=== PATIENT | female | born 1970 | race Caucasian/White ===

== ENCOUNTER 2019-08-17 20:27 | Inpatient (IN) | payer OTHER ==
[2019-08-17 20:57] VITALS: BMI 31.3
--- NOTE | 2019-08-17 21:03 | PDOC ---
History of Present Illness - General Chief Complaint: Pain Stated Complaint: GALLASTONES Time Seen by Provider: 08/17/19 21:01 - History of Present Illness Initial Comments: 08/17/19 21:54 Pt is a 48y/o female with PMH of cholelithiasis who presents with 2 weekends of upper abdominal pain. She reports her diet is worse on the weekends, and the pain is worse after meals and with deep inspiration. It is sharp and dull in nature. Pain is currently 10/10, and pt is unable to get in a comfortable position. She also has nausea, vomiting (4-5x yesterday, last time bilious; today tried to vomit but could not), chills, and diaphoresis. She denies chest pain, shortness of breath, or diarrhea. She reports being treated for UTI in the last week and still has urge to urinate. She is on an abx but unsure of name. Past History - Past Medical History Allergies/Adverse Reactions: Allergies Allergy/AdvReac Type Severity Reaction Status Date / Time No Known Allergies Allergy Verified 08/17/19 20:51 Home Medications: Ambulatory Orders NK [No Known Home Medication] 08/18/19 CVA: No COPD: No GI Disorders: Yes (Gallstones) HTN: No Hypercholesterolemia: No - Surgical History Abdominal Surgery: No - Family Medical History Family Hx Diabetes: Sister - Psycho Social/Smoking Cessation Hx Smoking History: Current some day smoker Number of Cigarettes Smoked Daily: 3 Information on smoking cessation initiated: Yes Hx Alcohol Use: No Drug/Substance Use Hx: No Review of Systems - Review of Systems Constitutional: Yes: Chills, Diaphoresis. No: Fever Respiratory: No: Shortness of Breath Cardiac (ROS): No: Chest Pain ABD/GI: Yes: Nausea, Vomiting. No: Diarrhea *Physical Exam - Vital Signs Last Vital Signs Temp Pulse Resp BP Pulse Ox 98 F 77 20 130/83 97 08/17/19 20:51 08/17/19 20:51 08/17/19 20:51 08/17/19 20:51 08/17/19 20:51 - Physical Exam General Appearance: Yes: Nourished, Appropriately Dressed, Mild Distress HEENT: positive: EOMI, PHILLY Neck: positive: Trachea midline Respiratory/Chest: positive: Lungs Clear Cardiovascular: positive: Regular Rhythm, Regular Rate. negative: Murmur Gastrointestinal/Abdominal: positive: Tender (RUQ, LUQ, epigastric) ED Treatment Course - LABORATORY CBC & Chemistry Diagram: 08/18/19 05:27 08/18/19 05:27 Medical Decision Making - Medical Decision Making 08/18/19 00:42 Pt is a 48y/o female with PMH of cholelithiasis who presents with 2 weekends of upper abdominal pain. WBC 18 given IV tylenol, zofran Reglan, Benadryl, Dilaudid NS 100mL/hr pre-op labs ordered NPO surgical consult- Dr. Leal GI consult- Dr. Parker Spoke with Dr. Matthews who accepted the pt under Dr. Bazan. Discharge - Discharge Information Problems reviewed: Yes Clinical Impression/Diagnosis: Acute cholecystitis - Admission Yes - Follow up/Referral - Patient Discharge Instructions - Post Discharge Activity
[2019-08-17] MEDS ORDERED: ONDANSETRON 4 MG/2 ML VIAL IVPUSH ONE (21:41)
[2019-08-17] MEDS ORDERED: ACETAMINOPHEN 1000 MG/100 ML VIAL (NON FORMULARY) IVPB ONE (21:50)
[2019-08-17] MEDS ORDERED: ONDANSETRON 4 MG/2 ML VIAL ONE (21:53)
[2019-08-17] MEDS ORDERED: ACETAMINOPHEN INJECTION 100 ML IVPB ONE (21:58)
[2019-08-17 21:59] LABS: BASO % 0.5 % (0-2.0); EOS % 0.2 % (0-4.5); HEMATOCRIT 40.2 % (32.4-45.2); HEMOGLOBIN 13.3 GM/dL (10.7-15.3); LYMPH % 13.1 % (8-40); MCH 30.3 pg (25.7-33.7); MCHC 33.1 g/dl (32.0-36.0); MEAN CELL VOLUME 91.8 fl (80-96); MEAN PLT VOLUME 7.7 fl (7.5-11.1); MONO % 4.1 % (3.8-10.2); NEUT % 82.1 % (42.8-82.8); PLATELET COUNT 384 K/MM3 (134-434); RBC 4.38 M/mm3 (3.60-5.2); WHITE BLOOD COUNT 18.2 K/mm3 (4.0-10.0)
--- NOTE | 2019-08-17 22:02 | PDOC ---
Documentation entered by Jaja Yepez SCRIBE, acting as scribe for Sheree Choudhury MD. Sheree Choudhury MD: This documentation has been prepared by the [place]ibe, Jaja Yepez SCRIBE, under my direction and personally reviewed by me in its entirety. I confirm that the documentation accurately reflects all work, treatment, procedures, and medical decision making performed by me. Attending Attestation - Resident Resident Name: Kelly Beebe - ED Attending Attestation I have performed the following: I have examined & evaluated the patient, The case was reviewed & discussed with the resident, I agree w/resident's findings & plan, Exceptions are as noted - HPI HPI: The patient is a 48-year-old female with a past medical history significant for gallstones who presents to the emergency department with epigastric pain. The patient presents with two weekends of epigastric pain associated with nausea and vomiting, no relief with Pepto Bismol. The patient reports she had 4-5 episodes of vomiting yesterday, denies vomiting today. Denies diarrhea or fever , but reports chills and diaphoresis. The patient recalls her last meal was last night. 08/17/19 22:01 - Physicial Exam PE: 08/17/19 22:04 Well-nourished well-developed 48-year-old female presents with epigastric pain Head was normocephalic atraumatic Oral carious dentition Neck is supple Lungs are clear to auscultation bilaterally CVS regular rate rhythm S1-S2 Abdomen epigastric pain to deep palpation but no rebound or guarding Extremities full range of motion Skin warm and dry Neuro alert and oriented x3, ambulatory - Medical Decision Making 08/17/19 22:01 Patient states that she is not been eating well on the weekends and both week and she says epigastric pain with nausea Pepto-Bismol did not help her symptoms She said she vomited 4-5 times yesterday 08/17/19 22:02 Patient denies any prior surgeries 08/17/19 22:02 differential includes cholecystitis,gastritis, PUD 08/18/19 00:20 CAT scan consistent with acute cholecystitis PCP is Dr. Jacobo Kam and dr Bazan but Dr Wiggins was covering Patient admiitted to med/surg
[2019-08-17 22:25] LABS: URINE APPEARANCE Clear; URINE BILIRUBIN Negative (NEGATIVE); URINE COLOR Yellow; URINE GLUCOSE (UA) Negative (NEGATIVE); URINE KETONE Trace (NEGATIVE); URINE LEUK ESTERASE Negative (NEGATIVE); URINE NITRITE Negative (NEGATIVE); URINE PROTEIN Trace (NEGATIVE); URINE UROBILINOGEN 0.2 mg/dL (0.2-1.0)
[2019-08-17 22:47] LABS: EPI CELLS 6.3 /HPF (0-5/HPF); URINE BACTERIA 4.1 /hpf (NEGATIVE); URINE RBC 5.9 /hpf (0-4); URINE WBC 3.2 /hpf (0-5)
[2019-08-17 23:04] LABS: ALBUMIN 3.8 g/dl (3.4-5.0); BILIRUBIN,TOTAL 0.2 mg/dL (0.2-1); BLOOD UREA NITROGEN 6.5 mg/dL (7-18); CALCIUM 9.9 mg/dL (8.5-10.1); CREATININE 0.7 mg/dL (0.55-1.3); POTASSIUM 3.7 mmol/L (3.5-5.1); TOT PROT 8.4 g/dl (6.4-8.2)
[2019-08-18] MEDS ORDERED: METOCLOPRAMIDE HCL INJECTION 10 MG/2 ML VIAL IVPUSH ONE (00:03)
[2019-08-18] MEDS ORDERED: HYDROmorphone HCL CARPU-JECT 2 MG/1 ML DISP.SYRIN IVPUSH ONE (00:08)
[2019-08-18] MEDS ORDERED: PIPERACILLIN/TAZOB 3.375 GM 3.375 GM in DEXTROSE 5%-WATER - 50 ML IVPB ONE (00:09)
[2019-08-18] MEDS ORDERED: SODIUM CHLORIDE 1,000 ML IV SCH (00:15)
[2019-08-18] MEDS ORDERED: METOCLOPRAMIDE HCL INJECTION 10 MG/2 ML VIAL ONE (00:25)
[2019-08-18] MEDS ORDERED: PIPERACILLIN/TAZOB 3.375 GM 3.375 GM/50 ML BAG IVPB ONE ×2 (00:25→08:23)
[2019-08-18] MEDS ORDERED: HYDROmorphone HCl 2 MG/ML VIAL ONE (00:25)
--- NOTE | 2019-08-18 01:43 | HP ---
Admitting History and Physical - Admission Chief Complaint: Acute nausea, vomiting, and RUQ and epigastric abdominal pain History of Present Illness: This 48 yr old w/f with 15 yr history of gallstones admitted via ER with acute nausea, vomiting, and RUQ and epigastric abdominal pain and acute neutrophilic leukocytosis. 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: Alzheimer's, CVA, Dementia, Migraine, Multiple Sclerosis, Peripheral Neuropathy, Parkinson's, Seizure, Syncope, TIA, Vertigo, Other Cardiovascular: No: AFIB, Aneurysm, Aortic Insufficiency, Aortic Stenosis, CAD, CHF, Deep Vein Thrombosis, HTN, Hyperlipdemia, DE, Mitral Insufficiency, Mitral Stenosis, Murmur, Pulmonary Hypertension, Other Pulmonary: No: Asthma, Bronchitis, Cancer, COPD, O2 Dependent, Pneumonia, Previously Intubated, Pulmonary Embolus, Pulmonary Fibrosis, Sleep Apnea, Other Hepatobiliary: Yes: Cholelithiasis Renal/: No: Renal Failure, Renal Inusuff, BPH, Cancer, Hematuria, Hemodialysis , Neurogenic Bladder, Renal Calculi, UTI, Other Reproductive: No: Ectopic , Endometriosis, Fibroids, PID, Polycystic Ovary Syndrome, Postmenopausal, Other Heme/Onc: No: Anemia, B12 Deficiency, Bleeding Disorder, Cancer, Current Chemotherapy, Current Radiation Therapy, Hemochromatosis, Hypercoaguable State, Myeloproliferative Synd, Sickle Cell Disease, Sickle Cell Trait, Thrombocytopenia, Other Infectious Disease: No: AIDS, C-Diff, Herpes Zoster, HIV, MRSA, STD's, Tuberculosis, VREF, Other Psych: No: Addictions, Anxiety, Bipolar, Depression, Panic, Psychosis, Schizophrenia, Other Musculoskeletal: No: Bursitis, Chronic low back pain, Hemiparesis, Hemiplegia, Osteoarthritis, Paraplegia, Other Rheumatology: No: Fibromyalgia, Gout, Lupus, Rheumatoid Arthritis, Sarcoidosis, Vasculitis, Other ENT: No: Allergic Rhinitis, Sinusitis, Other Endocrine: No: Greene's Disease, Saint Stephen's Disease, Diabetes Insipidus, Diabetes Mellitus, Hyperparathyroidism, Hyperthyroidism, Hypothyroidism, Osteopenia, SIADH, Other Dermatology: No: Basal Cell, Cellulitis, Eczema, Melanoma, Psoriasis, Squamous Cell, Other - Past Surgical History Past Surgical History: No: None, AAA Repair, AICD, Amputation, Appendectomy, Arthrosocopy, AV Fistula/Graft, Bariatric Surgery, Breast Biopsy, Bypass, CABG, Carotid Endarterectomy, Cataract Removal, Cholecystectomy, Colectomy, Colonoscopy, Colostomy, Craniotomy, , Cystectomy, Hernia Repair, Hysterectomy, Ileal Conduit, Ileosotomy, Joint Replacement, Kidney Transplant, Laminectomy, Liver Transplant, Mastectomy, Nephrectomy, Oopherectomy, Orchiectomy, Permanent Pacemaker, Prostatectomy, Splenectomy, Stent, Thoracotomy , TURP, Tonsillectomy, Tubal Ligation, Upper Endoscopy, Valve Replacement, Vasectomy, Vein Stripping/Ligation - Smoking History Smoking history: Current some day smoker Aproximately how many cigarettes per day: 3 - Alcohol/Substance Use Hx Alcohol Use: No Home Medications - Allergies Allergies/Adverse Reactions: Allergies Allergy/AdvReac Type Severity Reaction Status Date / Time No Known Allergies Allergy Verified 08/17/19 20:51 Family Medical History Family Hx Cancer: Father (esophageal cancer) Family Hx Nuerologic Problems: Brother (cerebral aneurysm) Review of Systems - Review of Systems Constitutional: reports: Loss of Appetite Eyes: reports: No Symptoms HENT: reports: No Symptoms Neck: reports: No Symptoms Cardiovascular: reports: No Symptoms Respiratory: reports: No Symptoms Gastrointestinal: reports: Abdominal Pain, Nausea, Vomiting Genitourinary: reports: No Symptoms Breasts: reports: No Symptoms Reported Musculoskeletal: reports: No Symptoms Integumentary: reports: No Symptoms Neurological: reports: No Symptoms Endocrine: reports: No Symptoms Hematology/Lymphatic: reports: No Symptoms Psychiatric: reports: No Symptoms Physical Examination Vital Signs: Vital Signs Temperature 98 F 08/17/19 20:51 Pulse Rate 77 08/17/19 20:51 Respiratory Rate 20 08/17/19 20:51 Blood Pressure 130/83 08/17/19 20:51 O2 Sat by Pulse Oximetry (%) 97 08/17/19 20:51 Constitutional: Yes: Well Nourished, Calm, Mild Distress Eyes: Yes: Conjunctiva Clear, EOM Intact HENT: Yes: Atraumatic, Normocephalic Neck: Yes: Supple, Trachea Midline Cardiovascular: Yes: Regular Rate and Rhythm Respiratory: Yes: Regular, CTA Bilaterally Gastrointestinal: Yes: Normal Bowel Sounds, Soft, Tenderness (RUQ), Tenderness, Epigastrium ...Rectal Exam: Yes: Deferred Renal/: Yes: WNL Breast(s): Yes: WNL Musculoskeletal: Yes: WNL Extremities: Yes: WNL Edema: No Peripheral Pulses WNL: Yes Integumentary: Yes: WNL Neurological: Yes: WNL ...Motor Strength: WNL Psychiatric: Yes: WNL Labs: CBC, BMP 08/17/19 21:52 08/17/19 21:52 Imaging - Results Other: Report Reviewed (Lab data reviewed) Problem List - Problems (1) Cholelithiasis Code(s): K80.20 - CALCULUS OF GALLBLADDER W/O CHOLECYSTITIS W/O OBSTRUCTION (2) Acute cholecystitis Code(s): K81.0 - ACUTE CHOLECYSTITIS (3) Obesity Code(s): E66.9 - OBESITY, UNSPECIFIED (4) Nausea and vomiting Code(s): R11.2 - NAUSEA WITH VOMITING, UNSPECIFIED (5) RUQ abdominal pain Code(s): R10.11 - RIGHT UPPER QUADRANT PAIN (6) Epigastric abdominal pain Code(s): R10.13 - EPIGASTRIC PAIN Assessment/Plan Assessment/plan: acute nausea, vomiting, RUQ and epigastric abdominal pain, acute cholecystitis, acute neutrophilic leukocytosis; IV fluids, IV antibiotics , DVT prophylaxis, incentive spirometer.
[2019-08-18] MEDS ORDERED: ACETAMINOPHEN 1000 MG/100 ML VIAL (NON FORMULARY) IVPB PRN ×2 (02:00→19:35)
[2019-08-18] MEDS: LACTATED RINGERS SOLUTION 1,000 ML/1,000 ML INFUS.BAG IV SCH ×2 (03:26→22:32)
[2019-08-18] MEDS ORDERED: ONDANSETRON 4 MG/2 ML VIAL IVPUSH ONE (04:56)
[2019-08-18] MEDS ORDERED: ONDANSETRON 4 MG/2 ML VIAL ONE (05:59)
[2019-08-18 06:23] LABS: BASO % 0.6 % (0-2.0); EOS % 0.2 % (0-4.5); HEMOGLOBIN 12.3 GM/dL (10.7-15.3); LYMPH % 13.9 % (8-40); MCH 30.3 pg (25.7-33.7); MCHC 33.1 g/dl (32.0-36.0); MEAN CELL VOLUME 91.5 fl (80-96); MEAN PLT VOLUME 7.8 fl (7.5-11.1); MONO % 6.2 % (3.8-10.2); NEUT % 79.1 % (42.8-82.8); PLATELET COUNT 347 K/MM3 (134-434); RBC 4.05 M/mm3 (3.60-5.2); RDW 14.4 % (11.6-15.6); WHITE BLOOD COUNT 16.4 K/mm3 (4.0-10.0)
[2019-08-18] MEDS ORDERED: ACETAMINOPHEN INJECTION 100 ML IVPB ONE (06:23)
[2019-08-18 06:38] LABS: INR 1.11 (0.83-1.09); PROTHROMBIN TIME (PATIENT) 13.1 SEC (9.7-13.0)
[2019-08-18 06:41] LABS: ACTIVATED PTT 33.8 SECONDS (25.2-36.5)
[2019-08-18 06:47] LABS: ALBUMIN 3.5 g/dl (3.4-5.0); BILIRUBIN,TOTAL 0.4 mg/dL (0.2-1); BLOOD UREA NITROGEN 6.7 mg/dL (7-18); CALCIUM 8.6 mg/dL (8.5-10.1); CREATININE 0.6 mg/dL (0.55-1.3); MAGNESIUM 2.1 mg/dL (1.8-2.4); POTASSIUM 3.6 mmol/L (3.5-5.1); TOT PROT 7.7 g/dl (6.4-8.2)
[2019-08-18] MEDS: PIPERACILLIN/TAZOB 3.375 GM 3.375 GM in DEXTROSE 5%-WATER - 50 ML IVPB SCH ×3 (08:33→21:09)
--- NOTE | 2019-08-18 12:00 | CON.GI ---
Consult Consult Specialty:: Gastroenterology Referred by:: Tirso Beebe MD Reason for Consultation:: Abdominal pain - History of Present Illness Chief Complaint: Abdominal pain and vomiting for past two weekends History of Present Illness: 48F presents with colicky epigastric pain that radiates to the scapula and has led to vomiting. It occurred this and last weekend. Sonogram reveals gallstones and normal bile ducts. Her LFTs are unremarkable. She tells me that she had an ulcer diagnosed without endoscopy or imaging in the past but that pain was different. Bot grandmothers had stomach cancers and her father of esophageal cancer. She has never had an EGD. Her PMD is Dr Graves. 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 [facility] [employer] Home Medications - Allergies Allergies/Adverse Reactions: Allergies Allergy/AdvReac Type Severity Reaction Status Date / Time No Known Allergies Allergy Verified 08/17/19 20:51 - Home Medications Home Medications: Ambulatory Orders NK [No Known Home Medication] 08/18/19 Family Medical History Family Hx Cancer: Grandmother (maternal) (stomach cancer), Grandmother (paternal ) (stomach cancer), Father ( age 56 esophageal cancer) Review of Systems - Review of Systems Constitutional: reports: No Symptoms Eyes: reports: No Symptoms HENT: reports: No Symptoms Neck: reports: No Symptoms Cardiovascular: reports: No Symptoms Respiratory: reports: No Symptoms Gastrointestinal: reports: Abdominal Pain, Vomiting Genitourinary: reports: No Symptoms Musculoskeletal: reports: Back Pain Psychiatric: reports: Depression Physical Exam-GI Vital Signs: Vital Signs Temperature 98 F 08/18/19 11:48 Pulse Rate 69 08/18/19 11:48 Respiratory Rate 18 08/18/19 11:48 Blood Pressure 132/75 08/18/19 11:48 O2 Sat by Pulse Oximetry (%) 98 08/18/19 11:48 CBC,CMP WBC 16.4 K/mm3 (4.0-10.0) H 08/18/19 05:27 RBC 4.05 M/mm3 (3.60-5.2) 08/18/19 05:27 Hgb 12.3 GM/dL (10.7-15.3) 08/18/19 05:27 Hct 37.0 % (32.4-45.2) 08/18/19 05:27 MCV 91.5 fl (80-96) 08/18/19 05:27 MCH 30.3 pg (25.7-33.7) 08/18/19 05:27 MCHC 33.1 g/dl (32.0-36.0) 08/18/19 05:27 RDW 14.4 % (11.6-15.6) 08/18/19 05:27 Plt Count 347 K/MM3 (134-434) 08/18/19 05:27 MPV 7.8 fl (7.5-11.1) 08/18/19 05:27 Absolute Neuts (auto) 13.0 K/mm3 (1.5-8.0) H 08/18/19 05:27 Neutrophils % 79.1 % (42.8-82.8) 08/18/19 05:27 Lymphocytes % 13.9 % (8-40) 08/18/19 05:27 Monocytes % 6.2 % (3.8-10.2) 08/18/19 05:27 Eosinophils % 0.2 % (0-4.5) 08/18/19 05:27 Basophils % 0.6 % (0-2.0) 08/18/19 05:27 Nucleated RBC % 0 % (0-0) 08/18/19 05:27 Sodium 136 mmol/L (136-145) 08/18/19 05:27 Potassium 3.6 mmol/L (3.5-5.1) 08/18/19 05:27 Chloride 104 mmol/L (98-107) 08/18/19 05:27 Carbon Dioxide 24 mmol/L (21-32) 08/18/19 05:27 Anion Gap 8 MMOL/L (8-16) 08/18/19 05:27 BUN 6.7 mg/dL (7-18) L 08/18/19 05:27 Creatinine 0.6 mg/dL (0.55-1.3) 08/18/19 05:27 Est GFR (CKD-EPI)AfAm 125.80 08/18/19 05:27 Est GFR (CKD-EPI)NonAf 108.54 08/18/19 05:27 Random Glucose 120 mg/dL (74-106) H 08/18/19 05:27 Calcium 8.6 mg/dL (8.5-10.1) 08/18/19 05:27 Magnesium 2.1 mg/dL (1.8-2.4) 08/18/19 05:27 Total Bilirubin 0.4 mg/dL (0.2-1) 08/18/19 05:27 AST 13 U/L (15-37) L 08/18/19 05:27 ALT 18 U/L (13-61) 08/18/19 05:27 Alkaline Phosphatase 106 U/L (45-117) 08/18/19 05:27 Total Protein 7.7 g/dl (6.4-8.2) 08/18/19 05:27 Albumin 3.5 g/dl (3.4-5.0) 08/18/19 05:27 Current Medications Generic Name Dose Route Start Last Admin Trade Name Freq PRN Reason Stop Dose Admin Acetaminophen 1,000 mg 08/18/19 02:00 08/18/19 06:30 Ofirmev Injection - IVPB 1,000 mg Q6H PRN Administration PAIN Sodium Chloride 1,000 mls @ 100 mls/hr 08/18/19 00:15 08/18/19 00:36 Normal Saline - IV 100 mls/hr ASDIR TINA Administration Piperacillin Sod/Tazobactam 50 mls @ 100 mls/hr 08/18/19 08:00 08/18/19 08:33 Sod 3.375 gm/ Dextrose IVPB 08/18/19 21:29 100 mls/hr Q6H-IV TINA Administration Protocol Lactated Ringer's 1,000 ml in 1,000 mls @ 125 mls/hr 08/18/19 02:15 08/18/19 03:26 Lactated Ringers Solution IV 125 mls/hr ASDIR TINA Administration Piperacillin Sod/Tazobactam 50 mls @ 100 mls/hr 08/19/19 03:00 Sod 3.375 gm/ Dextrose IVPB Q6H-IV [facility] Protocol Constitutional: Yes: Anxious Eyes: Yes: Conjunctiva Clear HENT: Yes: Atraumatic Neck: Yes: Trachea Midline Cardiovascular: Yes: Regular Rate and Rhythm Respiratory: Yes: CTA Bilaterally Gastrointestinal Inspection: Yes: WNL ...Auscultate: Yes: Hypoactive Bowel Sounds ...Palpate: Yes: Soft, Tenderness (mild epigastric tenderness) ...Rectal Exam: Yes: Deferred (declined) Labs: CBC, BMP 08/18/19 05:27 08/18/19 05:27 INR, PTT INR 1.11 (0.83-1.09) H 08/18/19 05:27 Imaging - Results Ultrasound: Report Reviewed ( Final Report US ABDOMEN US -LIMITED Show Printer-Friendly Version Patient Name: Aurelia Arreola : 1970 ID: [id number] Study Date: 17-Aug-2019 22:16 [facility] Name: AURELIA ARREOLA DEPARTMENT OF RADIOLOGY Phys: Kelly Beebe RESIDENT : Age: 48 Sex: F [facility] Acct: [id number] Loc: [address] Exam Date: 08/17/19 Status: [place] [address] Unit Number: [id number] EXAM#: TYPE/EXAM: RESULT: [id number] US/ABDOMEN US -LIMITED HISTORY PROVIDED: Rule out cholelithiasis, cholecystitis. Real time examination of the abdomen demonstrates the following: The gallbladder is somewhat thick- walled and does contain multiple calculi. There is no evidence of intra or extrahepatic biliary duct dilatation. The steel engraver describes a negative Alcaraz's sign. If acute cholecystitis is clinically suspected, a follow-up HIDA scan may be warranted. The liver is normal in size and texture with no intrahepatic masses seen. Hepatopedal flow is documented within the main portal vein. The pancreas is normal in size and texture with no pancreatic masses identified. There is no evidence of hydronephrosis or acute abnormalities of the right kidney. There is no evidence of AAA. The IVC is patent. IMPRESSION: Thick walled gallbladder with multiple calculi. Clinical correlation and follow-up recommended. Please see above discussion. Reported By: Perry Fallon MD 08/18/19817 Technologist: Susan Gamble Transcribed Date/Time: 08/18/19817 Data Warehouse Consultant: Perry Fallon Printed Date/Time: By: Signed by: Perry Fallon Signed on: 18-Aug-2019 08:20) Problem List - Problems (1) Family history of esophageal cancer Code(s): Z80.0 - FAMILY HISTORY OF MALIGNANT NEOPLASM OF DIGESTIVE ORGANS (2) Acute cholecystitis Code(s): K81.0 - ACUTE CHOLECYSTITIS (3) Depression Code(s): F32.9 - MAJOR DEPRESSIVE DISORDER, SINGLE EPISODE, UNSPECIFIED (4) Cholelithiasis Code(s): K80.20 - CALCULUS OF GALLBLADDER W/O CHOLECYSTITIS W/O OBSTRUCTION (5) Epigastric abdominal pain Code(s): R10.13 - EPIGASTRIC PAIN (6) Nausea and vomiting Code(s): R11.2 - NAUSEA WITH VOMITING, UNSPECIFIED Assessment/Plan Impression: - The clinical picture is most consistent with cholecystitis. Her imaging and LFTs indicate that she does not need an ERCP preoperatively. Given her leukocytosis and pain would proceed with cholecystectomy Plan: -- Dr Leal has been called for surgical consultation. I endorse proceeding with cholecystectomy -- I advised her to followup after discharge to consider EGD given her FH to exclude any premalignant pathology ie. Perry's metaplasia and H pylori gastritis.
--- NOTE | 2019-08-18 13:52 | EKG ---
Test Reason : Blood Pressure : / mmHG Vent. Rate : 073 BPM Atrial Rate : 073 BPM P-R Int : 148 ms QRS Dur : 086 ms QT Int : 424 ms P-R-T Axes : 047 031 032 degrees QTc Int : 467 ms NORMAL SINUS RHYTHM NORMAL ECG NO PREVIOUS ECGS AVAILABLE Confirmed by Alex Garcia ([id number]) on 08/18/2019 1:51:41 PM Referred By: Confirmed By:Alex Garcia
[2019-08-18] MEDS ORDERED: HYDROmorphone HCl 2 MG/ML VIAL IVPB PRN ×3 (14:55→19:37)
[2019-08-18] MEDS ORDERED: ONDANSETRON 4 MG/2 ML VIAL IVPUSH PRN ×2 (14:57→19:38)
[2019-08-18] MEDS ORDERED: DEXTROSE 5%-WATER - 50 ML IVPB ONE ×2 (15:07→20:55)
[2019-08-18] MEDS ORDERED: PIPERACILLIN/TAZOBACTAM 3.375 GM VIAL IVPB ONE ×2 (15:07→20:55)
[2019-08-18] MEDS ORDERED: HYDROmorphone HCl 2 MG/ML VIAL IVPB ONE (17:15)
[2019-08-18] MEDS: HEPARIN NA (PORCINE) 5,000 UNITS/ML 1ML VIAL SQ SCH ×2 (17:47→22:32)
--- NOTE | 2019-08-18 21:03 | CONSULT ---
Consult Consult Specialty:: General Surgery Referred by:: Dr. Beebe Reason for Consultation:: cholecystitis - History of Present Illness Chief Complaint: epigastric pain, N/V, cold sweats History of Present Illness: 48yo F with known h/o cholelithiasis from 15 yrs ago, has occasional attacks of self-limited colic, presented with more severe pain the last 2 weekends. She had ground beef 2 wkends ago and had a longer, more significant attack than usual, which was better by Sunday. Then Sunday, she had stuffed peppers with ground beef, and had severe epigastric pain with N/V and diarrhea (both not previously associated), as well as some cold sweats. No recent illness otherwise , though the pain also felt a bit like heartburn as well. She thought it would get better on its own, but pain persisted into Sunday, and by late afternoon, she came to ER. Never been scoped, usually watches her diet and knows fatty food triggers. Smokes some days, not for last 4 days. Had ibuprofen on Sunday , but it didn't really help the pain. In ER, she had wbc 18, normal LFTs except alk phos slightly over normal, and US showed gallstones in thickened gallbladder, consistent with acute cholecystitis. She was admitted to medicine, given pain meds and IV fluids, and started on antibiotics. Surgery was asked to asesss. GI has already seen patient. WBC is down to 16 today. LFTs normal. Lipase not checked. She is seen and examined in bed; c/o epigastric pain and difficulty taking deep breath because of it. She did not eat much since Sunday, because she was afraid of the pain. She has been NPO in the hospital. She c/o dry mouth. She is ready to get her gallbladder out. - History Source History Provided By: Patient Limitations to Obtaining History: No Limitations - Past Medical History Gastrointestinal: Yes: Peptic Ulcer Disease Hepatobiliary: Yes: Cholelithiasis ...LMP: 05/23/19 ...: No Psych: Yes: Depression (on/off meds - not for last 6 months, feeling well) - Past Surgical History Past Surgical History: Yes: None - Alcohol/Substance Use Hx Alcohol Use: Yes (rarely) History of Substance Use: reports: None - Smoking History Smoking history: Current some day smoker Have you smoked in the past 12 months: Yes Aproximately how many cigarettes per day: 3 (last 4 days ago) - Social History Usual Living Arrangement: With Child ADL: Independent 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 denies: Fever Eyes: reports: Other (uses reading glasses). denies: Blurred Vision, Recent Change in Vision HENT: denies: Difficult Swallowing, Throat Pain Neck: denies: Swollen Glands, Tenderness Cardiovascular: denies: Chest Pain, Palpitations Respiratory: denies: Cough, SOB Gastrointestinal: reports: Abdominal Pain (with hpi), Diarrhea (Sat only), Indigestion, Nausea (Sat with hpi), Vomiting (Sat with hpi). denies: Constipation Genitourinary: denies: Burning, Dysuria Musculoskeletal: reports: Back Pain (in hospital, thinks its positional). denies: Joint Pain, Muscle Pain Integumentary: denies: Change in Color, Rash Neurological: denies: Dizziness, Headache, Unsteady Gait Psychiatric: reports: Depression (on/off - not on meds for last 6 months). denies: Anxiety Physical Exam Vital Signs: Vital Signs Temperature 98.5 F 08/18/19 13:36 Pulse Rate 75 08/18/19 13:36 Respiratory Rate 20 08/18/19 13:36 Blood Pressure 135/75 08/18/19 13:36 O2 Sat by Pulse Oximetry (%) 92 L 08/18/19 14:03 Constitutional: Yes: Well Nourished, No Distress, Calm Eyes: Yes: Conjunctiva Clear, EOM Intact. No: Sclera Icterus HENT: Yes: Atraumatic, Normocephalic Neck: Yes: Supple, Trachea Midline Cardiovascular: Yes: Regular Rate and Rhythm Respiratory: Yes: Regular, CTA Bilaterally Gastrointestinal: Yes: Normal Bowel Sounds (normal to less), Soft, Abdomen, Obese, Tenderness (RUQ with Alcaraz's, less in RLQ, LLQ referred toward right), Tenderness, Epigastrium. No: Tenderness, Rebound ...Rectal Exam: Yes: Deferred Renal/: No: CVA Tenderness - Left, CVA Tenderness - Right Musculoskeletal: No: Back Pain (no direct tenderness), Joint Stiffness, Joint Swelling Extremities: No: Cool, Cyanosis Edema: No Peripheral Pulses WNL: Yes Integumentary: No: Jaundice, Rash Neurological: Yes: Alert, Oriented Psychiatric: Yes: Alert, Oriented Labs: CBC, BMP 08/18/19 05:27 08/18/19 05:27 CMP Sodium 136 mmol/L (136-145) 08/18/19 05:27 Potassium 3.6 mmol/L (3.5-5.1) 08/18/19 05:27 Chloride 104 mmol/L (98-107) 08/18/19 05:27 Carbon Dioxide 24 mmol/L (21-32) 08/18/19 05:27 Anion Gap 8 MMOL/L (8-16) 08/18/19 05:27 BUN 6.7 mg/dL (7-18) L 08/18/19 05:27 Creatinine 0.6 mg/dL (0.55-1.3) 08/18/19 05:27 Est GFR (CKD-EPI)AfAm 125.80 08/18/19 05:27 Est GFR (CKD-EPI)NonAf 108.54 08/18/19 05:27 Random Glucose 120 mg/dL (74-106) H 08/18/19 05:27 Calcium 8.6 mg/dL (8.5-10.1) 08/18/19 05:27 Magnesium 2.1 mg/dL (1.8-2.4) 08/18/19 05:27 Total Bilirubin 0.4 mg/dL (0.2-1) 08/18/19 05:27 AST 13 U/L (15-37) L 08/18/19 05:27 ALT 18 U/L (13-61) 08/18/19 05:27 Alkaline Phosphatase 106 U/L (45-117) 08/18/19 05:27 Total Protein 7.7 g/dl (6.4-8.2) 08/18/19 05:27 Albumin 3.5 g/dl (3.4-5.0) 08/18/19 05:27 wbc down from 18 no lipase checked INR, PTT INR 1.11 (0.83-1.09) H 08/18/19 05:27 Urine Test Results Urine Color Yellow 08/17/19 22:13 Urine Appearance Clear 08/17/19 22:13 Urine pH 6.0 (5.0-8.0) 08/17/19 22:13 Ur Specific [place] 1.020 (1.010-1.035) 08/17/19 22:13 Urine Protein Trace (NEGATIVE) 08/17/19 22:13 Urine Glucose (UA) Negative (NEGATIVE) 08/17/19 22:13 Urine Ketones Trace (NEGATIVE) 08/17/19 22:13 Urine Blood Trace-intact (NEGATIVE) 08/17/19 22:13 Urine Nitrite Negative (NEGATIVE) 08/17/19 22:13 Urine Bilirubin Negative (NEGATIVE) 08/17/19 22:13 Ur Leukocyte Esterase Negative (NEGATIVE) 08/17/19 22:13 preg negative Imaging - Results Ultrasound: Report Reviewed, Image Reviewed (multiple gallstones in distended gallbladder including moderate sized one at neck, thickened area of wall against liver bed, no pericholecystic fluid, cbd 4.1mm) Problem List - Problems (1) Calculus of gallbladder with acute cholecystitis without obstruction Assessment/Plan: admitted to medicine agree with NPO until postop / IVF pain meds prn - encourage nonnarcotics first line DVT prophylaxis (do NOT hold for OR) continue IV antibiotics - consult ID to continue (ordered) trend labs check lipase ok for prn benadryl for sleep Discussed with patient risks, benefits and alternatives of laparoscopic possible open cholecystectomy, including but not limited to bleeding, infection , injury to adjacent structures, bile leak or ductal injury, intraabdominal abscess, incisional hernia, need for further procedures; alternatives include antibiotics with delayed or no surgery - risks of this include recurrence of cholecystitis, cholangitis, sepsis, pancreatitis and sequelae. Patient desires to proceed with operation - will take to OR in am for above. Informed consent signed for same. Plan OR for 11:00 tomorrow, pending am labs without evidence of pancreatitis. Code(s): K80.00 - CALCULUS OF GALLBLADDER W ACUTE CHOLECYST W/O OBSTRUCTION (2) Epigastric abdominal pain Assessment/Plan: still quite tender Code(s): R10.13 - EPIGASTRIC PAIN (3) Nausea and vomiting Assessment/Plan: resolved Code(s): R11.2 - NAUSEA WITH VOMITING, UNSPECIFIED Qualifiers: Vomiting type: unspecified Vomiting Intractability: non-intractable Qualified Code(s): R11.2 - Nausea with vomiting, unspecified (4) Obesity Code(s): E66.9 - OBESITY, UNSPECIFIED Qualifiers: Obesity type: due to excess calories Obesity classification: adult class 1 (BMI 30 - 34.9) Serious obesity comorbidity presence: without serious comorbidity Body mass index: BMI 31.0-31.9 Qualified Code(s): E66.09 - Other obesity due to excess calories; Z68.31 - Body mass index (BMI) 31.0-31.9, adult (5) Tobacco dependence due to cigarettes Assessment/Plan: discussed negative effect on wound healing and increased risk of wound infection /complications counseled regarding cessation pt receptive to quitting Code(s): F17.210 - NICOTINE DEPENDENCE, CIGARETTES, UNCOMPLICATED
[2019-08-18] MEDS ORDERED: HEPARIN NA (PORCINE) 5,000 UNITS/ML 1ML VIAL SQ SCH (22:00)
[2019-08-19] MEDS ORDERED: PIPERACILLIN/TAZOBACTAM 3.375 GM VIAL IVPB ONE ×4 (01:34→21:51)
[2019-08-19] MEDS ORDERED: DEXTROSE 5%-WATER - 50 ML IVPB ONE ×4 (01:34→21:51)
[2019-08-19] MEDS: LACTATED RINGERS SOLUTION 1,000 ML/1,000 ML INFUS.BAG IV SCH ×2 (02:45→08:04)
[2019-08-19] MEDS: PIPERACILLIN/TAZOB 3.375 GM 3.375 GM in DEXTROSE 5%-WATER - 50 ML IVPB SCH ×4 (02:46→21:58)
[2019-08-19] MEDS ORDERED: PIPERACILLIN/TAZOB 3.375 GM 3.375 GM in DEXTROSE 5%-WATER - 50 ML IVPB SCH (03:00)
[2019-08-19] MEDS: HEPARIN NA (PORCINE) 5,000 UNITS/ML 1ML VIAL SQ SCH ×2 (09:01→21:59)
[2019-08-19 09:13] LABS: BASO % 0.6 % (0-2.0); EOS % 0.3 % (0-4.5); HEMATOCRIT 35.7 % (32.4-45.2); HEMOGLOBIN 11.8 GM/dL (10.7-15.3); LYMPH % 13.8 % (8-40); MCH 30.7 pg (25.7-33.7); MCHC 33.2 g/dl (32.0-36.0); MEAN CELL VOLUME 92.4 fl (80-96); MEAN PLT VOLUME 7.8 fl (7.5-11.1); MONO % 7.8 % (3.8-10.2); NEUT % 77.5 % (42.8-82.8); PLATELET COUNT 299 K/MM3 (134-434); RBC 3.86 M/mm3 (3.60-5.2); RDW 14.2 % (11.6-15.6)
[2019-08-19 09:33] LABS: ALBUMIN 3.3 g/dl (3.4-5.0); BILIRUBIN,TOTAL 0.7 mg/dL (0.2-1); BLOOD UREA NITROGEN 6.6 mg/dL (7-18); CALCIUM 8.8 mg/dL (8.5-10.1); CREATININE 0.6 mg/dL (0.55-1.3); POTASSIUM 3.6 mmol/L (3.5-5.1); TOT PROT 7.5 g/dl (6.4-8.2)
[2019-08-19] MEDS ORDERED: PROPOFOL 20 ML ONE ×2 (09:58)
[2019-08-19] MEDS ORDERED: SUCCINYLCHOLINE CHLORIDE 200 MG/10 ML SYRINGE ONE (09:58)
[2019-08-19] MEDS ORDERED: MIDAZOLAM HCL 2 MG/2 ML SINGLE DOSE VIAL ONE ×2 (09:59)
[2019-08-19] MEDS ORDERED: fentaNYL CITRATE 250 MCG/5 ML VIAL ONE (09:59)
[2019-08-19] MEDS ORDERED: ROCURONIUM BROMIDE 50 MG/5 ML SYRINGE ONE ×2 (09:59)
[2019-08-19] MEDS ORDERED: BUPIVACAINE HCL/PF 0.5% (5 MG/ML) 30 ML VIAL IJ ONE ×2 (10:53→12:13)
--- NOTE | 2019-08-19 11:58 | PN ---
Progress Note, Physician Chief Complaint: Patient seen and examined at the bedside, mild RUQ abdominal pain. History of Present Illness: This 48 yr old w/f with hx of cholelithiasis admitted via ER with acute nausea, and vomiting, acute RUQ and epigastric abdominal pain, and acute neutrophilic leukocytosis. - Current Medication List Current Medications: Active Medications Acetaminophen (Ofirmev Injection -) 1,000 mg IVPB Q6H PRN PRN Reason: Pain Level 1 - 10 FIRST LINE Last Admin: 08/18/19 23:46 Dose: 1,000 mg Diphenhydramine HCl (Benadryl Injection -) 25 mg IVPUSH HS PRN PRN Reason: INSOMNIA Last Admin: 08/18/19 22:32 Dose: 25 mg Heparin Sodium (Porcine) (Heparin -) 5,000 unit SQ BID TINA Last Admin: 08/19/19 09:01 Dose: Not Given Hydromorphone HCl (Dilaudid Vial -) 0.5 mg IVPB Q6H PRN PRN Reason: PAIN LEVEL 7 - 10 Lactated Ringer's (Lactated Ringers Solution) 1,000 ml in 1,000 mls @ 125 mls/ hr IV ASDIR TINA Last Admin: 08/19/19 08:04 Dose: 125 mls/hr Piperacillin Sod/Tazobactam (Sod 3.375 gm/ Dextrose) 50 mls @ 100 mls/hr IVPB Q6H-IV TINA Last Admin: 08/19/19 08:04 Dose: 100 mls/hr Ondansetron HCl (Zofran Injection) 4 mg IVPUSH Q4H PRN PRN Reason: NAUSEA AND/OR VOMITING - Objective Vital Signs: Vital Signs Temperature 99.0 F 08/19/19 09:11 Pulse Rate 74 08/19/19 09:11 Respiratory Rate 18 08/19/19 09:11 Blood Pressure 118/71 08/19/19 09:11 O2 Sat by Pulse Oximetry (%) 93 L 08/19/19 09:00 Constitutional: Yes: Well Nourished, Calm, Mild Distress Eyes: Yes: Conjunctiva Clear, EOM Intact HENT: Yes: Atraumatic, Normocephalic Neck: Yes: Supple, Trachea Midline Cardiovascular: Yes: Regular Rate and Rhythm Respiratory: Yes: Regular, CTA Bilaterally Gastrointestinal: Yes: Normal Bowel Sounds, Hypoactive Bowel Sounds ...Rectal Exam: Yes: Deferred Genitourinary: Yes: WNL Breast(s): Yes: WNL Musculoskeletal: Yes: WNL Extremities: Yes: WNL Edema: No Peripheral Pulses WNL: Yes Integumentary: Yes: WNL Neurological: Yes: Alert, Oriented ...Motor Strength: WNL Psychiatric: Yes: WNL Labs: CBC, BMP 08/19/19 07:30 08/19/19 07:30 INR, PTT INR 1.11 (0.83-1.09) H 08/18/19 05:27 - ....Imaging Ultrasound: Report Reviewed Other: Report Reviewed (Lab data reviewed) Problem List - Problems (1) Cholelithiasis Code(s): K80.20 - CALCULUS OF GALLBLADDER W/O CHOLECYSTITIS W/O OBSTRUCTION (2) Acute cholecystitis Code(s): K81.0 - ACUTE CHOLECYSTITIS (3) Obesity Code(s): E66.9 - OBESITY, UNSPECIFIED Qualifiers: Obesity type: due to excess calories Obesity classification: adult class 1 (BMI 30 - 34.9) Serious obesity comorbidity presence: without serious comorbidity Body mass index: BMI 31.0-31.9 Qualified Code(s): E66.09 - Other obesity due to excess calories; Z68.31 - Body mass index (BMI) 31.0-31.9, adult (4) Nausea and vomiting Code(s): R11.2 - NAUSEA WITH VOMITING, UNSPECIFIED Qualifiers: Vomiting type: unspecified Vomiting Intractability: non-intractable Qualified Code(s): R11.2 - Nausea with vomiting, unspecified (5) RUQ abdominal pain Code(s): R10.11 - RIGHT UPPER QUADRANT PAIN (6) Epigastric abdominal pain Code(s): R10.13 - EPIGASTRIC PAIN Assessment/Plan Assessment/plan: acute cholecystitis, acute nausea and vomiting, acute RUQ and epigastric abdominal pain, status post laparascopic cholecystectomy; IV fluids, IV antibiotic, IV Tylenol, and IV Hydromorphone for pain control, IV Diphenhydramine, IV Ondansetron for nausea, incentive spirometer, DVT prophylaxis.
[2019-08-19] MEDS ORDERED: BENZOIN/ALOE VERA/STORAX/TOLU 58 ML BOTTLE ONE (12:08)
[2019-08-19] MEDS ORDERED: NEOSTIGMINE METHYLSULFATE 0.5 MG/ML - 10 ML MDV ONE (12:17)
--- NOTE | 2019-08-19 12:21 | SURG ---
Surgery Emergency Physician Note Emergency Physician: Conor Landers PA-C Date of Service: 08/19/19 Diagnosis: Acute cholecystitis, cholelithiasis Procedure: Laprascopic cholecystectomy I was present for the entirety of the operative procedure. For further detail, please refer to operative report. Visit type - Case Type Case Type: ED Admission - Emergency Emergency Visit: Yes ED Registration Date: 08/18/19 Care time: The patient presented to the Emergency Department on the above date and was hospitalized for further evaluation of their emergent condition. - New patient This patient is new to me today: Yes Date on this admission: 08/19/19
--- NOTE | 2019-08-19 12:37 | OP ---
Operative Note - Note: Operative Date: 08/19/19 Pre-Operative Diagnosis: acute cholecystitis Operation: laparoscopic cholecystectomy Findings: thickened/edematous gallbladder, multiple stones, decompressed of 15ml bile; chronic adhesions of lower half; cystic duct and artery clearly identified Post-Operative Diagnosis: Other (acute on chronic cholecystitis) Surgeon: Junaid Leal Wastewater Treatment Operator: Conor Landers Anesthesiologist/STACKER: Gordon Mtz Anesthesia: General, Local (20ml 0.5% marcaine) Specimens Removed: gallbladder to pathology Estimated Blood Loss (mls): 15 Fluid Volume Replaced (mls): 1,000 (crystalloid) Operative Report Dictated: Yes
[2019-08-19] MEDS ORDERED: ACETAMINOPHEN 1000 MG/100 ML VIAL (NON FORMULARY) IVPB ONE (12:39)
[2019-08-19] MEDS ORDERED: LACTATED RINGERS SOLUTION 1,000 ML/1,000 ML INFUS.BAG IV SCH ×2 (12:48→13:28)
[2019-08-19] MEDS ORDERED: ONDANSETRON 4 MG/2 ML VIAL IVPUSH PRN (13:28)
--- NOTE | 2019-08-19 14:50 | PN ---
Progress Note (short form) - Note Progress Note: ID consult dictated asked to see by dr ivey for iv antibiotics 48 yo female known history of gallstones, recent UTI treated with unknown antibiotics by PCP dr worthy started on zosy for acute cholycystitis now s/p lap choly today feels well abd pain much improved remains on zosyn leukocytosis trending down suspect can dc antibitics in am - will defer to surgery Problem List - Problems (1) Acute cholecystitis Code(s): K81.0 - ACUTE CHOLECYSTITIS (2) Leukocytosis Code(s): D72.829 - ELEVATED WHITE BLOOD CELL COUNT, UNSPECIFIED
[2019-08-19] MEDS ORDERED: IBUPROFEN 600 MG TABLET (FP) PO SCH (15:00)
[2019-08-19] MEDS: IBUPROFEN 600 MG TABLET (FP) PO SCH ×2 (15:39→21:58)
--- NOTE | 2019-08-19 15:42 | CONS ---
INFECTIOUS DISEASE CONSULTATION DATE OF CONSULTATION: DATE OF DICTATION: 08/19/2019 REQUESTING PHYSICIAN: Junaid Leal MD HISTORY: This is a 48-year-old woman with known gallstones for many years. Suddenly on Sunday evening she developed acute midepigastric right upper quadrant pain radiating to the scapula. She had vomiting with this as well. The pain persisted. She came the following evening, Sunday night, to the hospital where she was found to have gallstones. She denies any fevers or chills. She was admitted and evaluated by GI and Surgery. She was started on IV antibiotics, piperacillin/tazobactam. She was admitted. She was placed on piperacillin/tazobactam and underwent laparoscopic cholecystectomy this morning. She is currently awake and alert, out of bed. Reports tremendous improvement in her pain and is eating some Jell-O. PAST MEDICAL HISTORY: Notable for peptic ulcer disease, cholelithiasis, depression. PAST SURGICAL HISTORY: SOCIAL HISTORY: She lives with her and child. 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 There is no history of any recent travel or sick contacts. ALLERGIES: She has no known drug allergies. MEDICATIONS: She takes no medications. FAMILY HISTORY: Notable for stomach cancer in her grandmother on both sides, and her father from esophageal cancer. REVIEW OF SYSTEMS: Her vomiting has stopped, and her abdominal pain is much improved. She denies fevers or chills. PHYSICAL EXAMINATION: General: She is awake and alert. Vital Signs: Temperature is 98.9, maximum temperature is 99.5, pulse is 62, blood pressure 106/57, respiratory rate is 16. HEENT: She is normocephalic. Her eyes are anicteric. Neck: Supple. Lungs: Clear to auscultation. Heart: Regular rate and rhythm. Abdomen: Soft. She has trocar incision dressings intact. Extremities: Without edema. A white count on admission was 18,000. Today is 14. Her BUN and creatinine are normal. Her LFTs are normal. Her lipase is normal as well. Of note, she did recently have a UTI and was treated with antibiotics by her PCP, , she has she completed about a week ago. In summary, this is a young woman, otherwise healthy, with acute cholecystitis status post laparoscopic cholecystectomy. Of note, she was recently on unknown antibiotics for UTIs. Doing well on piperacillin/tazobactam, which I suspect can be discontinued in the next 24 hours. Would defer to the surgeon. RAYMON HERRING M.D. [id number]
[2019-08-19] MEDS ORDERED: ACETAMINOPHEN 325 MG TABLET (FP) PO SCH (18:00)
[2019-08-19] MEDS: ACETAMINOPHEN 325 MG TABLET (FP) PO SCH ×2 (18:46→23:26)
[2019-08-20] MEDS ORDERED: DEXTROSE 5%-WATER - 50 ML IVPB ONE ×2 (00:50→08:57)
[2019-08-20] MEDS ORDERED: PIPERACILLIN/TAZOBACTAM 3.375 GM VIAL IVPB ONE ×2 (00:50→08:57)
[2019-08-20] MEDS: IBUPROFEN 600 MG TABLET (FP) PO SCH ×2 (02:56→09:07)
[2019-08-20] MEDS: PIPERACILLIN/TAZOB 3.375 GM 3.375 GM in DEXTROSE 5%-WATER - 50 ML IVPB SCH ×2 (02:57→09:09)
[2019-08-20] MEDS: ACETAMINOPHEN 325 MG TABLET (FP) PO SCH (06:17)
[2019-08-20 06:53] VITALS: PULSE 68
[2019-08-20 08:51] LABS: BASO % 0.5 % (0-2.0); EOS % 0.3 % (0-4.5); HEMATOCRIT 31.5 % (32.4-45.2); HEMOGLOBIN 10.4 GM/dL (10.7-15.3); LYMPH % 20.6 % (8-40); MCH 30.3 pg (25.7-33.7); MEAN CELL VOLUME 91.9 fl (80-96); MEAN PLT VOLUME 7.6 fl (7.5-11.1); MONO % 5.5 % (3.8-10.2); NEUT % 73.1 % (42.8-82.8); PLATELET COUNT 278 K/MM3 (134-434); RBC 3.42 M/mm3 (3.60-5.2); WHITE BLOOD COUNT 13.7 K/mm3 (4.0-10.0)
[2019-08-20] MEDS: HEPARIN NA (PORCINE) 5,000 UNITS/ML 1ML VIAL SQ SCH (09:08)
[2019-08-20 09:15] LABS: BILIRUBIN,TOTAL 0.4 mg/dL (0.2-1); BLOOD UREA NITROGEN 13.7 mg/dL (7-18); CALCIUM 8.4 mg/dL (8.5-10.1); CREATININE 0.7 mg/dL (0.55-1.3)
[2019-08-20] MEDS ORDERED: POTASSIUM CHLORIDE TABS 20 MEQ TABLET.ER (FP) PO ONE (10:12)
--- NOTE | 2019-08-20 10:21 | PN ---
Progress Note, Physician History of Present Illness: s/p lap shi for acute on chronic cholecystitis seen and examined sitting up/in bed tolerating low fat diet mild pain incisional and controlled with alternating nonnarcotics completed antibiotics this morning wbc down a bit further no fevers voiding, + flatus and BM ambulating in halls - Current Medication List Current Medications: Active Medications Acetaminophen (Tylenol -) 650 mg PO Q6H [facility] Last Admin: 08/20/19 06:17 Dose: 650 mg Diphenhydramine HCl (Benadryl Injection -) 25 mg IVPUSH HS PRN PRN Reason: INSOMNIA Last Admin: 08/19/19 23:26 Dose: 25 mg Ibuprofen (Motrin -) 600 mg PO Q6H [facility] Last Admin: 08/20/19 09:07 Dose: 600 mg - Objective Vital Signs: Vital Signs Temperature 98.0 F 08/20/19 06:00 Pulse Rate 68 08/20/19 06:00 Respiratory Rate 18 08/20/19 06:00 Blood Pressure 113/68 08/20/19 06:00 O2 Sat by Pulse Oximetry (%) 95 08/19/19 21:00 Constitutional: Yes: No Distress, Calm, Obese Eyes: Yes: Conjunctiva Clear, EOM Intact. No: Sclera Icterus HENT: Yes: Atraumatic, Normocephalic Gastrointestinal: Yes: Soft, Abdomen, Obese, Tenderness (incisional, mainly umbilical - no RUQ anymore). No: Tenderness, Rebound Extremities: No: Cool, Cyanosis Integumentary: Yes: Incision (x4 dressed). No: Jaundice, Rash Wound/Incision: Yes: Steri Strips (under dressings), Dressing Dry and Intact (x4 ). No: Dressing Removed Neurological: Yes: Alert, Oriented Labs: CBC, BMP 08/20/19 08:20 08/20/19 08:20 CMP Sodium 136 mmol/L (136-145) 08/20/19 08:20 Potassium 3.0 mmol/L (3.5-5.1) L 08/20/19 08:20 Chloride 102 mmol/L (98-107) 08/20/19 08:20 Carbon Dioxide 28 mmol/L (21-32) 08/20/19 08:20 Anion Gap 6 MMOL/L (8-16) L 08/20/19 08:20 BUN 13.7 mg/dL (7-18) 08/20/19 08:20 Creatinine 0.7 mg/dL (0.55-1.3) 08/20/19 08:20 Est GFR (CKD-EPI)AfAm 119.58 08/20/19 08:20 Est GFR (CKD-EPI)NonAf 103.18 08/20/19 08:20 Random Glucose 80 mg/dL (74-106) 08/20/19 08:20 Calcium 8.4 mg/dL (8.5-10.1) L 08/20/19 08:20 Magnesium 2.1 mg/dL (1.8-2.4) 08/18/19 05:27 Total Bilirubin 0.4 mg/dL (0.2-1) 08/20/19 08:20 AST 28 U/L (15-37) 08/20/19 08:20 ALT 38 U/L (13-61) 08/20/19 08:20 Alkaline Phosphatase 87 U/L (45-117) 08/20/19 08:20 Total Protein 7.0 g/dl (6.4-8.2) 08/20/19 08:20 Albumin 3.0 g/dl (3.4-5.0) L 08/20/19 08:20 Lipase 56 U/L (73-393) L 08/19/19 07:30 K low wbc trending down still Problem List - Problems (1) Calculus of gallbladder with acute cholecystitis without obstruction Assessment/Plan: POD1 s/p laparoscopic cholecystectomy doing well + bowel function minimal incisional pain tolerating diet ambulating well incisions w/dressings c/d/i no fevers can d/c antibiotics ok for d/c home instructions in d/c plan discussed with Dr. Chen and Dr. Payne Code(s): K80.00 - CALCULUS OF GALLBLADDER W ACUTE CHOLECYST W/O OBSTRUCTION (2) Epigastric abdominal pain Assessment/Plan: resolved Code(s): R10.13 - EPIGASTRIC PAIN (3) Obesity Code(s): E66.9 - OBESITY, UNSPECIFIED Qualifiers: Obesity type: due to excess calories Obesity classification: adult class 1 (BMI 30 - 34.9) Serious obesity comorbidity presence: without serious comorbidity Body mass index: BMI 31.0-31.9 Qualified Code(s): E66.09 - Other obesity due to excess calories; Z68.31 - Body mass index (BMI) 31.0-31.9, adult (4) Tobacco dependence due to cigarettes Assessment/Plan: discussed negative effect on wound healing and increased risk of wound infection /complications counseled regarding cessation pt receptive to quitting Code(s): F17.210 - NICOTINE DEPENDENCE, CIGARETTES, UNCOMPLICATED
--- NOTE | 2019-08-20 10:27 | DS ---
Physical Examination Vital Signs: Vital Signs Temperature 98.0 F 08/20/19 06:00 Pulse Rate 68 08/20/19 06:00 Respiratory Rate 18 08/20/19 06:00 Blood Pressure 113/68 08/20/19 06:00 O2 Sat by Pulse Oximetry (%) 95 08/19/19 21:00 Labs: CBC, BMP 08/20/19 08:20 08/20/19 08:20 Discharge Summary Problems reviewed: Yes Reason For Visit: CHOLECYSTITIS Current Active Problems Acute cholecystitis (Acute) Calculus of gallbladder with acute cholecystitis without obstruction (Acute) Cholelithiasis (Acute) Depression (Acute) Epigastric abdominal pain (Acute) Family history of esophageal cancer (Acute) Leukocytosis (Acute) Nausea and vomiting (Acute) Obesity (Acute) RUQ abdominal pain (Acute) Tobacco dependence due to cigarettes (Acute) Condition: Good - Instructions Diet, Activity, Other Instructions: Postoperative instructions: You had a laparoscopic cholecystectomy on 08/19/[address] Junaid Leal of [facility]. Activity: Resume your usual activities gradually, but no heavy exertion or lifting more than 10-15 pounds for 1 month. Remove dressings 48 hours after surgery; sticky tapes underneath will fall off by themselves. You may shower daily starting then, just pat the incision areas dry. No bath or swimming until skin incisions have healed. Eat lightly at first, but advance to your usual diet as tolerated. Pain: For pain, you may use and alternate Tylenol (acetaminophen) 1-2 pills and/ or ibuprofen 200 mg (1-3 pills) every 6 hours each as needed; this means that you can take one OR the other at 3-hour intervals. Do not take more than 4000mg of acetaminophen in a day. Take medications as prescribed or indicated on the labeling. Follow-up: Call Dr. Leal's office at [phone] to make your postop appointment (Sunday in approximately 3 weeks after surgery). Clinic is held in the [facility] on the first floor of [facility]. Call the office if you have: * increasing pain not responsive to pain medication * fever of 101F or higher * vomiting * unusual or increasing bleeding or drainage from wounds * increasing redness or swelling at wound sites Also, see your primary medical doctor within 1-2 weeks. Referrals: Junaid Leal MD [Staff Physician] - Jacobo Graves [Primary Care Provider] - Disposition: HOME - Home Medications Comprehensive Discharge Medication List: Ambulatory Orders Acetaminophen [Tylenol .Regular Strength -] 650 mg PO Q6H tablet 08/20/19 Ibuprofen [Motrin -] 600 mg PO Q6H tablet 08/20/19
--- NOTE | 2019-08-20 10:40 | PN ---
Progress Note (short form) - Note Progress Note: doing well, +BM ate scrambled eggs for breakfast Vital Signs Period Temp Pulse Resp BP Sys/Carlson Pulse Ox Last 24 Hr 98.0 F-99.5 F 62-89 14-18 100-134/47-73 94-95 cor-rrr lungs clear abd soft,nt, dressings intact ext no edema CBC, BMP 08/20/19 08:20 08/20/19 08:20 a/p s/p lap choly- doing well for dd/c home off antibiotics f/u surgery and pmd d/w dr ivey Problem List - Problems (1) Acute cholecystitis Code(s): K81.0 - ACUTE CHOLECYSTITIS (2) Leukocytosis Code(s): D72.829 - ELEVATED WHITE BLOOD CELL COUNT, UNSPECIFIED
[2019-08-20 11:27] VITALS: BP 108/66; TEMP 97.9
--- NOTE | 2019-08-23 16:02 | OP ---
DATE OF OPERATION: 08/19/2019 PREOPERATIVE DIAGNOSIS: Acute cholecystitis. POSTOPERATIVE DIAGNOSIS: Lgoua-[id number]-rykeuvq cholecystitis. PROCEDURE: Laparoscopic cholecystectomy. SURGEON: Junaid Leal MD OIL INSPECTOR: JEANETTE Palma ANESTHESIA: General endotracheal and local, 20 mL of 0.5% Marcaine. ESTIMATED BLOOD LOSS: 15 mL. FLUIDS: Crystalloid 1 L. SPECIMEN: Gallbladder to Pathology. FINDINGS: Thickened, edematous gallbladder with multiple stones, decompressed of 15 mL of bile. There were chronic adhesions over the lower half. The cystic duct and artery were clearly identified. DISPOSITION: Stable and extubated to PACU. INDICATIONS FOR PROCEDURE: Patient is a 48-year-old female with a known history of gallstones diagnosed 15 years prior with occasional self-limited attacks of biliary colic, who presented to the ER with much more severe pain over the last 2 weekends, associated with fatty foods. Several days prior to coming in, she had severe epigastric pain with nausea, vomiting, and diarrhea, as well as cold sweats, and the pain did not get better; so, she came to the ER where she had a white count of 18,000, essentially normal liver function tests with a slightly elevated alkaline phosphatase. An ultrasound showed gallstones in a thickened gallbladder, consistent with acute cholecystitis. She was admitted to Medicine, kept n.p.o., given pain medications and IV fluids, and started on antibiotics. Her white count slowly trended down. Her lipase came back normal, but she was still quite tender in the right upper quadrant and epigastric areas. Risks, benefits, and alternatives of laparoscopic, possible open cholecystectomy were discussed with the patient including, but not limited to, bleeding, infection, injury to adjacent structures, bile leak or ductal injury, intraabdominal abscess, incisional hernia, need for further procedures, and alternatives inclusive of antibiotics with delayed or no surgery and risks of that including recurrence of cholecystitis, cholangitis, sepsis, pancreatitis, and their sequelae. The patient desired to proceed with the operation and signed informed consent for the same. She is now brought to the OR for this procedure. OPERATIVE TECHNIQUE: The patient was brought to the operating room and laid supine on the operating table. Sequential compression devices were applied to bilateral lower extremities, and her antibiotics were continued in the perioperative period. After induction and intubation by Anesthesia, the patient's abdomen was prepped and draped in sterile fashion, and a small supraumbilical midline incision was made with a scalpel and carried into subcutaneous tissues with electrocautery. The abdominal wall fascia was identified, divided with electrocautery, and grasped with Oziel clamps. The peritoneum was entered bluntly with the tip of a clamp, and a fingertip inserted to ensure entry into the abdominal cavity and the absence of any underlying adhesions. A stay suture of 0 Vicryl in figure-of-8 fashion was placed in the fascia for later closure, and the Yas trocar introduced directly into the abdominal cavity and secured in place with the balloon. The abdomen was insufflated with carbon dioxide. The patient was placed in reverse Trendelenburg position, and a laparoscope inserted to inspect the abdominal cavity. The gallbladder was immediately noted to be tense and edematous. Three additional 5-mm ports were placed under direct vision, one in the subxiphoid area, two more in the right upper quadrant. A grasper was introduced from the subxiphoid area to hold up the gallbladder, while the decompression needle was introduced from the right side and used to aspirate approximately 15 mL of bile. There were multiple stones filling the gallbladder , but this was enough to be able to grasp the fundus of the gallbladder with a grasper and elevate it over the liver edge. A second grasper was then used to grasp some tissue on the infundibulum of the gallbladder, as it was still quite thickened and with multiple stones, and was difficult to grasp effectively. A [place] dissector was then used to begin dissecting some dense adhesions off the lower half of the gallbladder. The hook cautery was used to begin dividing the peritoneum up the medial and lateral sides of the gallbladder. The cystic duct slowly became clearly visible and was ultimately isolated and clearly identified as one of the only 2 structures entering directly into or onto the gallbladder. The other was the cystic artery, located medially, which was also identified and dissected out. Once both of these structures had been identified , 5-mm clips were used to clip both structures, two proximally and one distally, and they were divided with endoscissors between the clips. The hook cautery was then used to complete taking the gallbladder off of the liver bed. The gallbladder, once completely , was placed in an Endo Catch bag and retrieved from the umbilical port site with the Yas, with the camera in the subxiphoid location. Again, multiple stones were palpable within it. It was passed off for a pathology specimen. Once the pneumoperitoneum and Yas trocar had been re-established, the camera was returned to the umbilical port and the operative field inspected for hemostasis. The suction surgical appliance fitter was used to suction blood and fluid from the field. There was no active bleeding noted from the liver bed at the conclusion of the procedure. The 5-mm ports were then removed under direct vision. The Yas trocar and camera were also withdrawn, and the abdomen exsufflated of carbon dioxide. The patient was returned to neutral position. The stay suture at the umbilicus was tied to close the fascia there. Hemostasis was achieved in the port sites with electrocautery where needed. Local anesthetic was then infiltrated into all port sites. Skin was closed with 4-0 Vicryl subcuticular suture, including a running at the umbilicus. Benzoin and Steri- Strips were applied over each incision, and dressings of gauze and Tegaderm placed over these. Counts were correct at the end of the procedure. The patient was then awakened and extubated by Anesthesia, moved back to a stretcher, and taken to the recovery room in stable condition, having tolerated the procedure well. JEANETTE Landers was an essential event marketing assistant throughout the procedure, beginning with facilitating entry into the abdominal cavity, grasping and manipulation of the gallbladder throughout the case, assistance with retrieval of the gallbladder, as well as local infiltration and closure of the skin sites. Junaid Leal M.D. [id number] MTDD
--- NOTE | 2019-08-27 11:33 | PATH ---
Surgical Pathology Report Patient Name: ERIKA ARREOLA [facility]. Rec. #: [id number] /Age/Gender: 1970 (Age: 48) / F Account: [id number] Location: [address] [place] [address] Taken: 08/19/2019 Received: 08/19/2019 Reported: 08/20/2019 Physicians: Junaid Leal M.D. Specimen(s) Received GALLBLADDER Clinical History Acute Cholecystitis Final Diagnosis GALLBLADDER, LAPAROSCOPIC CHOLECYSTECTOMY: ACUTE AND CHRONIC CHOLECYSTITIS WITH CHOLELITHIASIS. Electronically Signed Tracie Savage M.D. Gross Description Received in formalin, labeled "gallbladder," is a 8.5 x 4.5 cm. gallbladder with a 0.5 cm. in length portion of cystic duct attached. The outer surface is pink-mckeon and varies from smooth to shaggy. The lumen contains multiple yellow-green eyelid. The mucosa is trabeculated and focally hemorrhagic. The wall of the gallbladder measures up to 1 cm in thickness. Dry Goods Inspector sections are submitted in one cassette. MLSZ/08/19/2019 sansusi/08/19/2019
== END 2019-08-20 11:29 | disposition home or self-care (01) | DRG 263 ==
LOC: JER 20:27 → JERBED 08-18 00:18 → J5S 08-18 13:25
PROVIDERS: ADMIT Family Medicine; ATTEND Family Medicine
PROC: 0FT44ZZ Resection of Gallbladder, Percutaneous Endoscopic Approach (ICD-10-PCS; principal; 2019-08-19 11:00)
DX: K80.00 Calculus of gallbladder with acute cholecystitis without obstruction (principal); F17.210 Nicotine dependence, cigarettes, uncomplicated; R10.11 Right upper quadrant pain; Z68.31 Body mass index [BMI] 31.0-31.9, adult; R11.2 Nausea with vomiting, unspecified; E66.9 Obesity, unspecified; F41.8 Other specified anxiety disorders; D72.829 Elevated white blood cell count, unspecified; Z80.0 Family history of malignant neoplasm of digestive organs; Z87.11 Personal history of peptic ulcer disease
CPT/HCPCS: 36415; 76705-TC; 80053; 81003; 83690; 83735; 84703; 85025; 85610; 85730; 86850; 86900; 86901; 88304-TC; 93005; 93010; 94010; 94760; 99284-25; J0131; J1644; J7030